=== PATIENT | male | born 1980 | race Caucasian/White ===

== ENCOUNTER → 2016-11-09 | Outpatient (REF) ==
[~2016-11-09] MED LIST: BUPR100T6 PO; BUPR300T43 PO; CYCL-265 PO; ESCI10TA PO; FENO160T PO; HYDR-3881 PO; KETO10TA55 PO; LISI-596 GT; LSNP10T PO; METO50TA7 PO; OXC5T PO; PANT40TA3 PO; PRED20TA PO
--- NOTE | 2016-11-09 16:21 | Diagnostic Imaging Report ---
INDICATION: Preemployment physical. FINDINGS: Three views show mild dextroscoliosis of lumbar spine. Alignment is otherwise good. Body height is well maintained. Mild hypertrophic lipping of the endplates noted anteriorly at L3-L4. No evidence of pars defects. Mild hypertrophic changes noted of the facets at L5-S1. IMPRESSION: Mild dextroscoliosis with mild degenerative disc disease and facet changes. Dictated by: Dictated on workstation # [id number]
--- NOTE | 2016-11-09 16:24 | Diagnostic Imaging Report ---
INDICATION: Preemployment physical. FINDINGS: The lungs are well-aerated and clear. The heart is not enlarged. No hilar adenopathy. No pulmonary edema. No pneumothorax or pleural effusions. No bony abnormalities. IMPRESSION: Normal PA and lateral chest. Dictated by: Dictated on workstation # [id number]
== END ==
LOC: RAD 11:09
PROVIDERS: ATTEND Nurse Practitioner Family
DX: Z02.1 Encounter for pre-employment examination (principal)
CPT/HCPCS: 71020; 72100